=== PATIENT | female | born 1940 | race Caucasian/White ===

== ENCOUNTER 2021-09-03 08:23 | Outpatient (CLI) | payer MEDICARE, OTHER, SELFPAY | END 2021-09-03 08:24 | disposition home or self-care (01) | LOC: RAD 08:26 → INJ CL 13:42 | PROVIDERS: Visit Provider Family Medicine | DX: M54.16 Radiculopathy, lumbar region (principal); M51.36 Other intervertebral disc degeneration, lumbar region | CPT/HCPCS: 62323; J0702; Q9966 ==

== ENCOUNTER 2022-12-23 10:43 | Outpatient (CLI) | payer MEDICARE, OTHER, SELFPAY | END 2022-12-23 10:44 | disposition home or self-care (01) | PROVIDERS: PCP Internal Medicine; Visit Provider Family Medicine | DX: M54.16 Radiculopathy, lumbar region (principal); M51.36 Other intervertebral disc degeneration, lumbar region | CPT/HCPCS: 62323; J1100; Q9966 ==